=== PATIENT | female | born 1930 | race Caucasian/White ===

== ENCOUNTER 2016-12-28 20:41 | Observation (INO) | payer OTHER ==
--- NOTE | 2016-12-28 20:48 | PDOC ---
Rapid Medical Evaluation Chief Complaint: Nausea Time Seen by Provider: 12/28/16 20:47 Medical Evaluation: Allergies Allergy/AdvReac Type Severity Reaction Status Date / Time codeine Allergy Verified 04/08/14 20:27 12/28/16 20:47 I have performed a brief in-person evaluation of this patient. The patient presents with a chief complaint of: "Feeling sick," nausea, weakness. Pertinent physical exam findings: None I have ordered the following: Urinalysis, Urine culture. The patient will proceed to the ED for further evaluation
[2016-12-28 20:50] VITALS: BMI 21.6
--- NOTE | 2016-12-28 21:36 | PDOC ---
Attending Attestation - HPI HPI: 12/28/16 22:04 The patient is a 86 year old female, with a significant past medical history of hypertension, DM, diverticulosis, and chronic low back pain, who presents to the emergency department complaining of nausea without vomiting, weakness, and dizziness beginning today. The patient states that she visited her PCP Dr. Garsia yesterday for right leg pain/swelling and was prescribed pain medications. She reports not feeling well s/p beginning the pain medications today. The patient states that she received an ultrasound for her right lower extremity swelling that was negative for a blood clot. She denies chest pain or shortness of breath. She denies recent fevers or chills. PCP: Dr. Garsia Documentation prepared by Larry Marcelo, acting as medical billing specialist for Wayne Shetty MD. - Physicial Exam PE: 12/28/16 22:08 Vitals: Triage Vital signs reviewed General Appearance: no acute distress, well nourished well developed Eyes: Pupils equal reactive round, extraocular movement intact Chest Wall: Nontender Cardiac: Regular rate and rhythym, no murmurs, no rubs, no gallops Lungs: Clear to auscultation bilateral, good air movement bilaterally Abdomen: Soft, non distended, normal bowel sounds, non tender to palpation Extremities: +Right lower extremity edema. Skin: Warm and dry, no rashes or lesions, no rash, no petechiae Neuro: AOX3; Cranial Nerves 2-12 grossly intact, Strength intact to all extremities, Sensation intact to all extremities, gait normal Psych: Normal mood, normal affect <Larry Marcelo - Last Filed: 12/28/16 22:24> - Resident Resident Name: Percy Carty - ED Attending Attestation I have performed the following: I have examined & evaluated the patient, The case was reviewed & discussed with the resident, I agree w/resident's findings & plan, Exceptions are as noted - Medical Decision Making 12/29/16 02:11 Patient with 1 day history of weakness lightheadedness presyncope. Labs EKG unremarkable urinalysis positive. Status post IV fluids patient begins to feel better. Given symptoms of weakness and lightheadedness we will rule out patient for ACS serial troponins treat UTI and urinalysis with Keflex hydrate and observe for further management. <Wayne Shetty - Last Filed: 12/29/16 02:11>
--- NOTE | 2016-12-28 21:54 | PDOC ---
History of Present Illness - General Chief Complaint: Weakness Stated Complaint: FATIGUE Time Seen by Provider: 12/28/16 21:06 History Source: Patient Exam Limitations: No Limitations - History of Present Illness Initial Comments: 12/28/16 21:40 Patient is a 86F with history of DM2, diverticulitis, HLD, HTN, afib (no blood thinners, on digoxin) and hypothyroidism here today complaining of weakness for about 12 hours. She says that she's been having back, leg and knee pain recently , and was started on tramadol which she took for the first time this morning. She reports a prior poor reaction to percocet. She says that she's had associated nausea, vomiting, increased shortness of breath and decreased activity level. She reports that she does not remember when her last digoxin level, but think that shes due. She states that she's had some knee swelling, and had an in office ultrasound of her leg that was normal. She denies chest pain, abdominal pain, pain with urination. She endorses some urinary frequency. Past History - Past Medical History Allergies/Adverse Reactions: Allergies Allergy/AdvReac Type Severity Reaction Status Date / Time codeine Allergy Verified 12/28/16 20:47 Home Medications: Ambulatory Orders Atenolol [Tenormin -] 50 mg PO HS 04/07/14 Digoxin [Lanoxin -] 0.25 mg PO DAILY 04/07/14 Losartan/Hydrochlorothiazide [Losartan-Hctz 100-12.5 mg Tab] 1 each PO DAILY Rosuvastatin Calcium [Crestor] 5 mg PO DAILY 04/07/14 Sitagliptin Phos/Metformin HCl [Janumet 50-500 mg Tablet] 1 each PO DAILY Anemia: No Asthma: No Cancer: No Cardiac Disorders: Yes (AFIB'95) CVA: No COPD: No CHF: No Dementia: No Diabetes: Yes (NIDDM) GI Disorders: Yes (DIVERTICULITIS,DIVERTICULOSIS,DUODENITIS,ESOPHAGITIS, GASTRITIS,) Disorders: No HTN: Yes Hypercholesterolemia: Yes Liver Disease: Yes (FATTY LIVER) Seizures: No Thyroid Disease: Yes - Surgical History Abdominal Surgery: No Appendectomy: No Cardiac Surgery: No Cholecystectomy: Yes Lung Surgery: No Neurologic Surgery: No Orthopedic Surgery: Yes (TKR LEFT, RT HIP SURGERY) - Immunization History Immunization Up to Date: Yes - Suicide/Smoking/Psychosocial Hx Smoking History: Former smoker Have you smoked in the past 12 months: No Number of Cigarettes Smoked Daily: 0 If you are a former smoker, when did you quit?: years ago Cigars Per Day: 0 Information on smoking cessation initiated: No Hx Alcohol Use: No Drug/Substance Use Hx: No Substance Use Type: None Hx Substance Use Treatment: No Review of Systems - Review of Systems Comments:: 12/28/16 21:54 GENERAL/CONSTITUTIONAL: No fever or chills. Positive for generalized weakness. HEAD, EYES, EARS, NOSE AND THROAT: No change in vision. No sore throat. CARDIOVASCULAR: No chest pain. Positive for shortness of breath. RESPIRATORY: No cough, wheezing, or hemoptysis. GASTROINTESTINAL: Positive nausea and vomiting. Negative for diarrhea or constipation. GENITOURINARY: No dysuria, frequency, or change in urination. MUSCULOSKELETAL: No joint or muscle swelling or pain. No neck or back pain. SKIN: No rash NEUROLOGIC: No headache, vertigo, loss of consciousness, or change in strength/ sensation. ENDOCRINE: No increased thirst. No abnormal weight change HEMATOLOGIC/LYMPHATIC: No anemia, easy bleeding, or history of blood clots. ALLERGIC/IMMUNOLOGIC: No hives or skin allergy. *Physical Exam - Vital Signs Last Vital Signs Temp Pulse Resp BP Pulse Ox 97.5 F L 54 L 20 144/69 95 12/28/16 20:47 12/28/16 20:47 12/28/16 20:47 12/28/16 20:47 12/28/16 20:47 - Physical Exam Comments: 12/28/16 21:55 GENERAL: Awake, alert, and fully oriented, in no acute distress HEAD: No signs of trauma, normocephalic, atraumatic EYES: PERRLA, EOMI, sclera anicteric, conjunctiva clear ENT: Auricles normal inspection, hearing grossly normal, nares patent, oropharynx clear without exudates. Moist mucosa NECK: Normal ROM, supple, no lymphadenopathy, JVD, or masses LUNGS: No distress, speaks full sentences, clear to auscultation bilaterally HEART: Regular rate and rhythm, normal S1 and S2, no murmurs, rubs or gallops, peripheral pulses normal and equal bilaterally. ABDOMEN: Soft, nontender, normoactive bowel sounds. No guarding, no rebound. No masses EXTREMITIES: Normal inspection, Normal range of motion. Swelling without erythema in right lower leg, especially around right knee. Normal pulses. No clubbing or cyanosis. NEUROLOGICAL: Cranial nerves II through XII grossly intact. Normal speech, normal gait, no focal sensorimotor deficits SKIN: Warm, Dry, normal turgor, no rashes or lesions noted. Heart Score/ECG Review - History History: Slightly suspicious - Electrocardiogram EKG: Non specific repolarization disturbance - Age Age: >/= 65 - Risk Factors Risk Factors Heart Score: Yes Hx Hypercholesterolemia, Yes Hx Hypertension, Yes Hx Diabetes Based on the list above the patient has:: >/=3 risk factors or Hx atherosclerotic disease - Troponin Troponin: </= normal limit - Score Heart Score - Total: 5 ED Treatment Course - LABORATORY CBC & Chemistry Diagram: 12/28/16 22:20 12/28/16 22:20 - RADIOLOGY Radiology Studies Ordered: Category Date Time Status CHEST PA & LAT [RAD] Stat Radiology 12/28/16 21:22 Ordered Medical Decision Making - Medical Decision Making 12/28/16 21:56 Patient is a 86F with history of DM2, diverticulitis, HLD, HTN, afib (no blood thinners, on digoxin) and hypothyroidism here today complaining of weakness. Vital signs notable for HR of 54. Differential is broad, and includes: digoxin toxicity, acs, arrhythmia, pneumonia, uti. 12/29/16 01:04 Laboratory Tests 12/28/16 12/28/16 12/28/16 22:20 22:20 22:36 WBC 11.5 H D Hgb 13.1 D Hct 39.0 Plt Count 209 Neutrophils % 84.3 H BUN 19 H D Creatinine 1.1 H Magnesium 1.7 L Troponin I < 0.02 B-Natriuretic Peptide 171.79 Digoxin 1.1682 CBC shows small leukocytosis, trop negative, BNP normal, digoxin normal. 12/29/16 01:06 EKG shows normal sinus rhythm rate= 53bpm. Flattened T waves, although baseline is uneven. No ST elevation or depression. MO, QTc, QRS intervals normal. CXR shows no acute cardiopulmonary process. 12/29/16 01:43 UA shows UTI. Will treat with keflex. *DC/Admit/Observation/Transfer Diagnosis at time of Disposition: Weakness, UTI (urinary tract infection) - Discharge Dispostion Condition at time of disposition: Stable Admit: Yes - Referrals Referrals: Percy Garsia MD [Primary Care Provider] - - Patient Instructions - Post Discharge Activity
[2016-12-28] MEDS ORDERED: SODIUM CHLORIDE 1,000 ML IV SCH (22:00)
[2016-12-28] MEDS ORDERED: ONDANSETRON 4 MG/2 ML VIAL IVPB ONE (22:07)
[2016-12-28] MEDS ORDERED: ONDANSETRON *ODT* 4 MG TABLET ONE (22:15)
[2016-12-28 22:45] LABS: BASOPHIL 0.3 % (0-2.0); EOSINOPHIL 1.1 % (0-4.5); MCHC 33.7 g/dl (32.0-36.0); MEAN PLT VOLUME 7.9 fl (7.5-11.1); NEUTROPHILS 84.3 % (42.8-82.8); PLATELET COUNT 209 K/MM3 (134-434); RDW 13.7 % (11.6-15.6); WHITE BLOOD COUNT 11.5 K/mm3 (4.0-10.0)
[2016-12-28 22:59] LABS: INR 1.08 (0.82-1.09); PROTHROMBIN TIME (PATIENT) 12.2 SEC (9.98-11.88)
[2016-12-28 23:04] LABS: ALBUMIN 3.5 g/dl (3.4-5.0); ANION GAP 10 (8-16); BILIRUBIN,TOTAL 0.6 mg/dL (0.2-1.0); CALCIUM 9.4 mg/dL (8.5-10.1); CO2 29 mmol/L (21-32); CREATININE 1.1 mg/dL (0.55-1.02); GLUCOSE,RANDOM 180 mg/dL (74-106); MAGNESIUM 1.7 mg/dL (1.8-2.4); SGOT/AST 18 U/L (15-37); SGPT/ALT 30 U/L (12-78); TOT PROT 7.6 g/dl (6.4-8.2)
[2016-12-28 23:06] LABS: ALK PHOS 69 U/L (45-117); TROPONIN I < 0.02 ng/ml (0.00-0.05)
[2016-12-29 00:05] LABS: DIGOXIN LEVEL 1.1682 ng/ml (0.8-2.0)
[2016-12-29 01:04] LABS: URINE APPEARANCE CLEAR; URINE BILIRUBIN NEGATIVE (NEGATIVE); URINE BLOOD 1+ (NEGATIVE); URINE COLOR LTYELLOW; URINE GLUCOSE (UA) NEGATIVE (NEGATIVE); URINE KETONE NEGATIVE (NEGATIVE); URINE NITRITE NEGATIVE (NEGATIVE); URINE PROTEIN NEGATIVE (NEGATIVE); URINE UROBILINOGEN NEGATIVE mg/dL (0.2-1.0)
[2016-12-29 01:16] LABS: URINE HYALINE CAST 1 /lpf; URINE MUCUS RARE; URINE RBC 9; URINE WBC 56
[2016-12-29] MEDS ORDERED: CEPHALEXIN MONOHYDRATE 500 MG CAPSULE (UD) PO ONE (01:43)
[2016-12-29] MEDS ORDERED: CEPHALEXIN MONOHYDRATE 250 MG CAPSULE (FP) ONE (02:09)
[2016-12-29 02:32] LABS: THYROID STIMULATING HORMONE 3.3 uIU/ml (0.358-3.74)
[2016-12-29] MEDS ORDERED: ACETAMINOPHEN 325 MG TABLET (FP) PO ONE (03:14)
[2016-12-29 08:25] LABS: TROPONIN I < 0.02 ng/ml (0.00-0.05)
[2016-12-29] MEDS ORDERED: PATIENT'S OWN MEDICATION (NON-FORMULARY) (Losartan/Hydrochlorothiazide [Losartan-Hctz 100- PO SCH (10:00)
[2016-12-29 10:32] LABS: BASOPHIL 0.6 % (0-2.0); EOSINOPHIL 2.4 % (0-4.5); MCH 29.9 pg (25.7-33.7); MCHC 33.9 g/dl (32.0-36.0); MEAN CELL VOLUME 88.1 fl (80-96); MEAN PLT VOLUME 7.6 fl (7.5-11.1); NEUTROPHILS 66.1 % (42.8-82.8); PLATELET COUNT 197 K/MM3 (134-434); RDW 13.6 % (11.6-15.6); WHITE BLOOD COUNT 6.4 K/mm3 (4.0-10.0)
[2016-12-29 10:55] LABS: ALBUMIN 3.3 g/dl (3.4-5.0); ANION GAP 10 (8-16); CALCIUM 10.1 mg/dL (8.5-10.1); CO2 28 mmol/L (21-32); GLUCOSE,RANDOM 119 mg/dL (74-106)
[2016-12-29 10:58] LABS: ALK PHOS 65 U/L (45-117); BILIRUBIN,TOTAL 0.7 mg/dL (0.2-1.0); SGOT/AST 19 U/L (15-37); SGPT/ALT 30 U/L (12-78)
[2016-12-29] MEDS ORDERED: PT OWN MED DRAWER 7, Y5N ONE ×2 (11:29→15:26)
[2016-12-29] MEDS: HYDROCHLOROTHIAZIDE 12.5 MG CAPSULE (FP) PO SCH (11:31)
[2016-12-29] MEDS: DIGOXIN 0.25 MG TABLET (FP) PO SCH (11:31)
[2016-12-29] MEDS: ROSUVASTATIN CA 5 MG TABLET (FP) PO SCH (11:31)
--- NOTE | 2016-12-29 12:44 | HP ---
Admitting History and Physical - Primary Care Physician PCP: Percy Garsia - Admission Chief Complaint: Feeling weak and exhausted History of Present Illness: 86 yrs old F independent, lives alone H/O HTN, Hypercholsteremia, T2DM, Paroxysmal Afib rate controlled not on AC, chronic venous insufficiency and back pain , on Saturday patient visited PMD office with Rt Leg , foot and back pain , LE Doppler was performed that showed no DVT also had CT scan Lumbosacral spine that shows Lumbar canal stenosis and DJD with Left 5 mm non obstructing renal stone, patient was discharged home on tramadol, patient feelt weak , oozy in after noon after taking tramadol, came to Ed for evaluation, also c/o lethargy low grade fever, no dysuria, chills, suprapubic pain or tenderness, no c/o nausea, vomiting or diarrhea, In the ED W/U sshows elevated TWBC with + UA admitted for further management. History Source: Patient Limitations to Obtaining History: No Limitations - Past Medical History Cardiovascular: Yes: HTN Gastrointestinal: Yes: Constipation, Diverticulosis, Other Psych: Yes: Anxiety Musculoskeletal: Yes: Chronic low back pain Endocrine: Yes: Diabetes Mellitus - Past Surgical History Past Surgical History: Yes: Cholecystectomy, Colonoscopy, Joint Replacement - Smoking History Smoking history: Former smoker Have you smoked in the past 12 months: No Aproximately how many cigarettes per day: 0 If you are a former smoker, when did you quit?: years ago - Alcohol/Substance Use Hx Alcohol Use: No History of Substance Use: reports: None - Social History Occupation: retired History of Recent Travel: No Home Medications - Allergies Allergies/Adverse Reactions: Allergies Allergy/AdvReac Type Severity Reaction Status Date / Time codeine Allergy Verified 12/28/16 20:47 - Home Medications Home Medications: Ambulatory Orders Atenolol [Tenormin -] 50 mg PO HS 04/07/14 Digoxin [Lanoxin -] 0.25 mg PO DAILY 04/07/14 Losartan/Hydrochlorothiazide [Losartan-Hctz 100-12.5 mg Tab] 1 each PO DAILY Rosuvastatin Calcium [Crestor] 5 mg PO DAILY 04/07/14 Sitagliptin Phos/Metformin HCl [Janumet 50-500 mg Tablet] 1 each PO DAILY Family Disease History - Family Disease History Family Disease History: CA: Father, Other: Mother Review of Systems - Review of Systems Constitutional: reports: Fever, Malaise HENT: reports: No Symptoms Neck: reports: No Symptoms Cardiovascular: denies: Chest Pain, Edema, Palpitations, Shortness of Breath Respiratory: denies: Cough, Exercise Intolerance, Hemoptysis, Orthopnea, PND, SOB, SOB on Exertion Gastrointestinal: reports: Constipation. denies: Abdominal Pain, Diarrhea Musculoskeletal: reports: Back Pain Neurological: denies: Change in LOC Endocrine: denies: Excessive Sweating Hematology/Lymphatic: denies: Easily Bruised Pain Intensity: 4 Physical Examination Vital Signs: Vital Signs Temperature 97.9 F 12/29/16 09:23 Pulse Rate 76 12/29/16 11:31 Respiratory Rate 18 12/29/16 09:23 Blood Pressure 153/87 12/29/16 09:23 O2 Sat by Pulse Oximetry (%) 96 12/29/16 09:23 Elderly F looks comfortable C/O Left foot pain on lateral aspect and lower back pain HEENT: MM moist, no anemia, PERRLA, EOMI NECK; No JVD No Bruit, Thyroid Central CHEST: CTA B/L CVS: S1S2 R no m/g/r ABD: No distention, non tender BS + EXT: Rt foot and mild swelling on inferior to lateral malleolus, varicocity of B/L LE vein Trace edema feet, no calf tenderness, Pulses + ROPE WALKER: AOX3 non focal Labs: CBC, BMP 12/29/16 10:05 12/29/16 10:05 Laboratory Results - last 24 hr 12/28/16 12/28/16 12/28/16 22:20 22:20 22:20 WBC 11.5 H D RBC 4.38 Hgb 13.1 D Hct 39.0 MCV 89.0 MCH 30.0 MCHC 33.7 RDW 13.7 Plt Count 209 MPV 7.9 Neutrophils % 84.3 H Lymphocytes % 8.9 Monocytes % 5.4 Eosinophils % 1.1 Basophils % 0.3 PT with INR 12.20 H INR 1.08 Sodium 136 Potassium 3.8 Chloride 97 L Carbon Dioxide 29 Anion Gap 10 BUN 19 H D Creatinine 1.1 H Creat Clearance w eGFR 47.21 Random Glucose 180 H D Calcium 9.4 Magnesium 1.7 L Total Bilirubin 0.6 AST 18 ALT 30 D Alkaline Phosphatase 69 Troponin I < 0.02 B-Natriuretic Peptide Total Protein 7.6 Albumin 3.5 TSH Urine Color Urine Appearance Urine pH Ur Specific Morrow Urine Protein Urine Glucose (UA) Urine Ketones Urine Blood Urine Nitrite Urine Bilirubin Urine Urobilinogen Ur Leukocyte Esterase Urine WBC (Auto) Urine RBC (Auto) Urine RBC Ur Epithelial Cells Hyaline Casts Urine Mucus Digoxin Urine Test Results Urine Color Ltyellow 12/29/16 00:50 Urine Appearance Clear 12/29/16 00:50 Urine pH 6.0 (5.0-8.0) 12/29/16 00:50 Ur Specific [place]row 1.008 (1.001-1.035) 12/29/16 00:50 Urine Protein Negative (NEGATIVE) 12/29/16 00:50 Urine Glucose (UA) Negative (NEGATIVE) 12/29/16 00:50 Urine Ketones Negative (NEGATIVE) 12/29/16 00:50 Urine Blood 1+ (NEGATIVE) H 12/29/16 00:50 Urine Nitrite Negative (NEGATIVE) 12/29/16 00:50 Urine Bilirubin Negative (NEGATIVE) 12/29/16 00:50 Ur Leukocyte Esterase 3+ (NEGATIVE) H 12/29/16 00:50 Urine RBC No Result Required. 12/29/16 00:50 Ur Epithelial Cells Rare /hpf (FEW) 12/29/16 00:50 Urine Mucus Rare 12/29/16 00:50 Imaging - Results X-ray: Report Reviewed (No acute changes) EKG: Report Reviewed ([address] T changes, normal intervals) Problem List - Problems (1) UTI (urinary tract infection) Assessment/Plan: Present with back pain and + UA , elevated to TWBC on Cefazolin 1 gm q 8hrly F/ U U culture tylenol PRN> Code(s): N39.0 - URINARY TRACT INFECTION, SITE NOT SPECIFIED Qualifiers: Urinary tract infection type: acute pyelonephritis Qualified Code(s): N10 - Acute pyelonephritis (2) Diabetes type 2, controlled Assessment/Plan: Hold Metformin Cont Januvia, Diabetic Diet, HBA!C, accucheck and correction dose insulin. Code(s): E11.9 - TYPE 2 DIABETES MELLITUS WITHOUT COMPLICATIONS Qualifiers: Diabetes mellitus complication status: without complication (3) Paroxysmal A-fib Assessment/Plan: Not on AC at present on Dig rate controlled. Code(s): I48.0 - PAROXYSMAL ATRIAL FIBRILLATION (4) Hypertension Assessment/Plan: Well controlled cont all home medications. Code(s): I10 - ESSENTIAL (PRIMARY) HYPERTENSION Qualifiers: Hypertension type: essential hypertension Qualified Code(s): I10 - Essential (primary) hypertension (5) Hyperlipidemia Code(s): E78.5 - HYPERLIPIDEMIA, UNSPECIFIED (6) Right foot pain Assessment/Plan: No clinical sifgn of inflamation, DVT R/O in the office F/U Uric acid , pain conytol and ESR Code(s): M79.671 - PAIN IN RIGHT FOOT (7) Weakness Assessment/Plan: Generalised weakness non focal, most likely due to Pain medication/UTI. Code(s): R53.1 - WEAKNESS
[2016-12-29] MEDS ORDERED: sitaGLIPtin PHOSPHATE 25 MG TABLET (FP) PO ONE (13:30)
[2016-12-29] MEDS: ENOXAPARIN NA (PORCINE) 40 MG/0.4 ML DISP.SYRIN SQ SCH (15:30)
[2016-12-29] MEDS: LOSARTAN POTASSIUM 100 MG TABLET PO SCH (15:30)
[2016-12-29] MEDS: CEFAZOLIN 1 GM in DEXTROSE 5%-WATER - 50 ML IVPB SCH ×2 (15:30→18:40)
[2016-12-29 17:41] LABS: URINE LEUK ESTERASE 3+ (NEGATIVE)
[2016-12-29] MEDS ORDERED: CEFAZOLIN 1 GM in DEXTROSE 5%-WATER - 50 ML IVPB SCH (18:00)
[2016-12-29] MEDS: ACETAMINOPHEN 325 MG TABLET (FP) PO PRN (18:44)
[2016-12-29] MEDS: ATENOLOL 50 MG TABLET (FP) PO SCH (22:54)
[2016-12-30] MEDS ORDERED: PT OWN MED DRAWER 7, Y5N ONE ×2 (00:11→10:06)
[2016-12-30] MEDS: CEFAZOLIN 1 GM in DEXTROSE 5%-WATER - 50 ML IVPB SCH ×2 (00:14→10:35)
[2016-12-30] MEDS: ACETAMINOPHEN 325 MG TABLET (FP) PO PRN ×3 (01:17→18:42)
[2016-12-30] MEDS: sitaGLIPtin PHOSPHATE 25 MG TABLET (FP) PO SCH (06:47)
[2016-12-30 08:08] LABS: BASOPHIL 0.6 % (0-2.0); EOSINOPHIL 3.4 % (0-4.5); MCH 29.8 pg (25.7-33.7); MCHC 33.8 g/dl (32.0-36.0); MEAN CELL VOLUME 88.1 fl (80-96); MEAN PLT VOLUME 7.9 fl (7.5-11.1); NEUTROPHILS 65.5 % (42.8-82.8); PLATELET COUNT 202 K/MM3 (134-434); RDW 13.7 % (11.6-15.6); WHITE BLOOD COUNT 7.1 K/mm3 (4.0-10.0)
[2016-12-30 08:22] LABS: ALBUMIN 3.2 g/dl (3.4-5.0); GLUCOSE,RANDOM 117 mg/dL (74-106)
[2016-12-30 08:28] LABS: ALK PHOS 64 U/L (45-117); ANION GAP 9 (8-16); BILIRUBIN,TOTAL 0.8 mg/dL (0.2-1.0); CALCIUM 8.8 mg/dL (8.5-10.1); CO2 28 mmol/L (21-32); CREATININE 1.1 mg/dL (0.55-1.02); SGOT/AST 19 U/L (15-37); SGPT/ALT 28 U/L (12-78)
[2016-12-30] MEDS: LOSARTAN POTASSIUM 100 MG TABLET PO SCH (10:34)
[2016-12-30] MEDS: ROSUVASTATIN CA 5 MG TABLET (FP) PO SCH (10:34)
[2016-12-30] MEDS: HYDROCHLOROTHIAZIDE 12.5 MG CAPSULE (FP) PO SCH (10:34)
[2016-12-30] MEDS: DIGOXIN 0.25 MG TABLET (FP) PO SCH (10:34)
[2016-12-30] MEDS: ENOXAPARIN NA (PORCINE) 40 MG/0.4 ML DISP.SYRIN SQ SCH (10:35)
[2016-12-30 11:26] LABS: C-REACTIVE PROTEIN 0.9 MG/DL (0.00-0.3); URIC ACID 5.6 mg/dL (2.6-7.2)
[2016-12-30] MEDS ORDERED: SODIUM CHLORIDE 1,000 ML IV SCH (12:18)
--- NOTE | 2016-12-30 12:24 | PN ---
Progress Note, Physician History of Present Illness: Feels improved still c/o mild pain - Current Medication List Current Medications: Active Medications Acetaminophen (Tylenol -) 650 mg PO Q6H PRN PRN Reason: FEVER OR PAIN Last Admin: 12/30/16 10:35 Dose: 650 mg Atenolol (Tenormin -) 50 mg PO HS [facility] Last Admin: 12/29/16 22:54 Dose: 50 mg Cephalexin HCl (Keflex -) 500 mg PO BID [facility] Digoxin (Lanoxin -) 0.25 mg PO DAILY [facility] Last Admin: 12/30/16 10:34 Dose: 0.25 mg Enoxaparin Sodium (Lovenox -) 40 mg SQ DAILY [facility] Last Admin: 12/30/16 10:35 Dose: 40 mg Hydrochlorothiazide (Hctz -) 12.5 mg PO DAILY [facility] Last Admin: 12/30/16 10:34 Dose: 12.5 mg Sodium Chloride (Normal Saline -) 1,000 mls @ 75 mls/hr IV ASDIR STA Stop: 12/31/16 01:37 Losartan Potassium (Losartan Potassium) 100 mg PO DAILY [facility] Last Admin: 12/30/16 10:34 Dose: 100 mg Rosuvastatin Calcium (Crestor -) 5 mg PO DAILY [facility] Last Admin: 12/30/16 10:34 Dose: 5 mg Sitagliptin Phosphate (Januvia -) 25 mg PO DAILY@0700 [facility] Last Admin: 12/30/16 06:47 Dose: 25 mg - Objective Vital Signs: Vital Signs Temperature 98.2 F 12/30/16 10:27 Pulse Rate 62 12/30/16 10:34 Respiratory Rate 18 12/30/16 10:27 Blood Pressure 141/76 12/30/16 10:27 O2 Sat by Pulse Oximetry (%) 100 12/29/16 22:00 Elderly F looks comfortable C/O mild Rt foot pain on lateral aspect and lower back pain HEENT: MM moist, no anemia, PERRLA, EOMI NECK; No JVD No Bruit, Thyroid Central CHEST: CTA B/L CVS: S1S2 R no m/g/r ABD: No distention, non tender BS + EXT: Rt foot and mild swelling on inferior to lateral malleolus, varicocity of B/L LE vein Trace edema feet, no calf tenderness, Pulses + PARTS PRODUCT ANALYST: AOX3 non focal Labs: CBC, BMP 12/30/16 06:15 12/30/16 06:15 INR, PTT INR 1.08 (0.82-1.09) 12/28/16 22:20 Problem List - Problems (1) UTI (urinary tract infection) Assessment/Plan: Present with back pain and + UA , elevated to TWBC on admission trended normal switch to Po Cefazolin, culture is negative> Code(s): N39.0 - URINARY TRACT INFECTION, SITE NOT SPECIFIED Qualifiers: Urinary tract infection type: acute pyelonephritis Qualified Code(s): N10 - Acute pyelonephritis (2) Diabetes type 2, controlled Assessment/Plan: Hold Metformin Cont Januvia, Diabetic Diet, HBA!C, accucheck and correction dose insulin. Code(s): E11.9 - TYPE 2 DIABETES MELLITUS WITHOUT COMPLICATIONS Qualifiers: Diabetes mellitus complication status: without complication (3) Paroxysmal A-fib Assessment/Plan: Not on AC at present on Dig rate controlled. Code(s): I48.0 - PAROXYSMAL ATRIAL FIBRILLATION (4) Hypertension Assessment/Plan: Well controlled cont all home medications. Code(s): I10 - ESSENTIAL (PRIMARY) HYPERTENSION Qualifiers: Hypertension type: essential hypertension Qualified Code(s): I10 - Essential (primary) hypertension (5) Hyperlipidemia Assessment/Plan: Cont STatin Code(s): E78.5 - HYPERLIPIDEMIA, UNSPECIFIED (6) Right foot pain Assessment/Plan: No clinical sifgn of inflamation, DVT R/O in the office F/U Uric acid , pain control with tylenol and ESR Code(s): M79.671 - PAIN IN RIGHT FOOT (7) Dehydration Assessment/Plan: IV Hydration Code(s): E86.0 - DEHYDRATION (8) Weakness Assessment/Plan: Generalised weakness non focal, most likely due to Pain medication/UTI. Code(s): R53.1 - WEAKNESS
[2016-12-30 12:32] LABS: ERYTHROCYTE SEDIMENTATION RATE 31 mm/hr (0-30)
[2016-12-30] MEDS: ATENOLOL 50 MG TABLET (FP) PO SCH (21:46)
[2016-12-30] MEDS: CEPHALEXIN MONOHYDRATE 500 MG CAPSULE (UD) PO SCH (21:46)
[2016-12-31] MEDS: ACETAMINOPHEN 325 MG TABLET (FP) PO PRN (06:31)
[2016-12-31] MEDS: sitaGLIPtin PHOSPHATE 25 MG TABLET (FP) PO SCH (06:32)
[2016-12-31 07:41] LABS: BASOPHIL 0.6 % (0-2.0); EOSINOPHIL 3.3 % (0-4.5); MCH 29.9 pg (25.7-33.7); MCHC 33.8 g/dl (32.0-36.0); MEAN CELL VOLUME 88.6 fl (80-96); MEAN PLT VOLUME 7.7 fl (7.5-11.1); NEUTROPHILS 65.8 % (42.8-82.8); PLATELET COUNT 209 K/MM3 (134-434); RDW 13.6 % (11.6-15.6); WHITE BLOOD COUNT 7.5 K/mm3 (4.0-10.0)
[2016-12-31 07:48] LABS: ANION GAP 8 (8-16); CALCIUM 7.5 mg/dL (8.5-10.1); CO2 29 mmol/L (21-32); GLUCOSE,RANDOM 121 mg/dL (74-106)
[2016-12-31 10:26] VITALS: BP 105/58; PULSE 64; TEMP 97.5
[2016-12-31] MEDS: DIGOXIN 0.25 MG TABLET (FP) PO SCH (10:29)
[2016-12-31] MEDS: ROSUVASTATIN CA 5 MG TABLET (FP) PO SCH (10:30)
[2016-12-31] MEDS: HYDROCHLOROTHIAZIDE 12.5 MG CAPSULE (FP) PO SCH (10:30)
[2016-12-31] MEDS: LOSARTAN POTASSIUM 100 MG TABLET PO SCH (10:30)
[2016-12-31] MEDS: CEPHALEXIN MONOHYDRATE 500 MG CAPSULE (UD) PO SCH (10:30)
--- NOTE | 2016-12-31 11:38 | EKG ---
Test Reason : Blood Pressure : / mmHG Vent. Rate : 054 BPM Atrial Rate : 054 BPM P-R Int : 208 ms QRS Dur : 096 ms QT Int : 414 ms P-R-T Axes : 052 -01 002 degrees QTc Int : 392 ms POOR DATA QUALITY, INTERPRETATION MAY BE ADVERSELY AFFECTED SINUS BRADYCARDIA MINIMAL VOLTAGE CRITERIA FOR LVH, MAY BE NORMAL VARIANT NONSPECIFIC ST AND T WAVE ABNORMALITY ABNORMAL ECG WHEN COMPARED WITH ECG OF 10-APR-2014 09:54, T WAVE INVERSION NO LONGER EVIDENT IN INFERIOR LEADS T WAVE INVERSION NO LONGER EVIDENT IN LATERAL LEADS Confirmed by CLAUDIA KELLEY, SOHEILA ([id number]) on 12/31/2016 11:38:05 AM Referred By: Confirmed By:SOHEILA TAYLOR MD
--- NOTE | 2017-01-01 13:19 | DS ---
Physical Examination Vital Signs: Patient came to ER with complaints of lethargy and weakness brought on by several days of Acute Sciatica right side with new onset pain Rx with Tramadol. Temperature 97.5 F L 12/31/16 10:00 Pulse Rate 64 12/31/16 10:29 Respiratory Rate 18 12/31/16 10:00 Blood Pressure 105/58 12/31/16 10:00 O2 Sat by Pulse Oximetry (%) 98 12/31/16 09:00 When seen in ER she was noted to have a mildly elevated WBC and pyuria and was started on Antibiotics.She was improved but continued to have right sided lower extremity pain focused in right knee. This will be followed by Orthopedic MD as outpatient. Constitutional: Yes: Calm Eyes: Yes: Conjunctiva Clear Cardiovascular: Yes: Regular Rate and Rhythm Respiratory: Yes: Diminished Gastrointestinal: Yes: Soft Renal/: No: Bladder Distention, CVA Tenderness - Right, Prince Present Musculoskeletal: Yes: Joint Swelling (right knee) Edema: No Neurological: Yes: Alert, Oriented Labs: CBC, BMP 12/31/16 06:20 12/31/16 06:20 Discharge Summary Reason For Visit: WEAKNESS,UTI Acute back pain Acute right Sciatica Diabetes Mellitus (acute) Urinary Tract Infection (acute) Acute Weakness Hypertension(Acute) Left Knee replacement Right Hip replacement Procedures: Principal: IV antibiotic; Urine C/S and followup lab and BGM's. Other Procedures: telemetry Hospital Course: Improved failry rapidly; will follow as outpatient and refer to orthopedic MD. Condition: Stable - Instructions Diet, Activity, Other Instructions: Continue Low salt low carbohydrate diet. Continue antibiotic for on 3 days as outpatient. Make appt. with Orthopedic MD Dr. Lucas Re: right knee ?? Pain MD if Dr. Lucas does not think the right knee pain is Orthopedic See Dr. Garsia within 2 weeks if able. Referrals: Percy Garsia MD [Primary Care Provider] - Disposition: HOME - Home Medications Comprehensive Discharge Medication List: Ambulatory Orders Atenolol [Tenormin -] 50 mg PO HS 04/07/14 Digoxin [Lanoxin -] 0.25 mg PO DAILY 04/07/14 Losartan/Hydrochlorothiazide [Losartan-Hctz 100-12.5 mg Tab] 1 each PO DAILY Rosuvastatin Calcium [Crestor] 5 mg PO DAILY 04/07/14 Sitagliptin Phos/Metformin HCl [Janumet 50-500 mg Tablet] 1 each PO DAILY Acetaminophen [Tylenol .Regular Strength -] 650 mg PO Q6H PRN tablet 12/31/16 Cephalexin Monohydrate [Keflex -] 500 mg PO BID #6 capsule 12/31/16
== END 2016-12-31 10:54 | disposition home or self-care (01) ==
LOC: JER 20:41 → JERBED 12-29 02:04 → J4S 12-29 08:50 → JERBED 12-29 08:51 → J4S 12-29 09:45
PROVIDERS: ADMIT Internal Medicine; ATTEND Internal Medicine
PROC: 3E033GC Introduction of Other Therapeutic Substance into Peripheral Vein, Percutaneous Approach (ICD-10-PCS; principal; 2016-12-29)
PROC: 3E0337Z Introduction of Electrolytic and Water Balance Substance into Peripheral Vein, Percutaneous Approach (ICD-10-PCS; 2016-12-29)
PROC: 3E03329 Introduction of Other Anti-infective into Peripheral Vein, Percutaneous Approach (ICD-10-PCS; 2016-12-29)
PROC: 3E013GC Introduction of Other Therapeutic Substance into Subcutaneous Tissue, Percutaneous Approach (ICD-10-PCS; 2016-12-29)
DX: N39.0 Urinary tract infection, site not specified (principal); N10 Acute pyelonephritis; R53.1 Weakness; E11.9 Type 2 diabetes mellitus without complications; E78.5 Hyperlipidemia, unspecified; I10 Essential (primary) hypertension; I48.0 Paroxysmal atrial fibrillation; M79.671 Pain in right foot; E86.0 Dehydration
CPT/HCPCS: 36415; 71010-TC; 80048; 80053; 80162; 81003; 81015; 83735; 83880; 84443; 84484; 84550; 85025; 85610; 85651; 86140; 87086; 93005; 93010; 96372; 96374; 99285-25; G0378

== ENCOUNTER 2020-12-08 11:50 | Observation (INO) | payer OTHER ==
[2020-12-08 13:42] LABS: BASO % 0.7 % (0-2.0); EOS % 2.6 % (0-4.5); HEMATOCRIT 37.9 % (32.4-45.2); HEMOGLOBIN 13.1 GM/dl (10.7-15.3); LYMPH % 17.5 % (8-40); MCH 31.3 pg (25.7-33.7); MCHC 34.5 g/dl (32.0-36.0); MEAN CELL VOLUME 90.8 fl (80-96); MEAN PLT VOLUME 8.2 fl (7.5-11.1); MONO % 7.3 % (3.8-10.2); NEUT % 71.9 % (42.8-82.8); PLATELET COUNT 206 10^3/uL (134-434); RBC 4.18 M/mm3 (3.60-5.2); RDW 13.4 % (11.6-15.6); WHITE BLOOD COUNT 6.9 K/mm3 (4.0-10.8)
[2020-12-08 13:47] LABS: ALBUMIN 4.3 g/dl (3.4-5.0); ALK PHOS 66 U/L (45-117); ANION GAP 12 MMOL/L (8-16); CALCIUM 9.9 mg/dl (8.5-10); CHLORIDE 99 mmol/L (98-107); CO2 28 mmol/L (21-32); CREATININE 1.3 mg/dl (0.55-1.3); GLUCOSE,RANDOM 106 mg/dl (74-106); SGOT/AST 26 U/L (15-37); SGPT/ALT 26 U/L (13-61); SODIUM 139 mmol/L (136-145); TOT PROT 7.6 g/dl (6.4-8.2)
[2020-12-08 18:24] VITALS: BMI 19.3
[2020-12-09 08:04] LABS: BASO % 2.1 % (0-2.0); EOS % 4.5 % (0-4.5); HEMATOCRIT 36.2 % (32.4-45.2); HEMOGLOBIN 12.1 GM/dl (10.7-15.3); MCH 30.6 pg (25.7-33.7); MCHC 33.4 g/dl (32.0-36.0); MEAN CELL VOLUME 91.7 fl (80-96); MEAN PLT VOLUME 7.7 fl (7.5-11.1); MONO % 9.6 % (3.8-10.2); NEUT % 65.8 % (42.8-82.8); PLATELET COUNT 177 10^3/uL (134-434); RBC 3.95 M/mm3 (3.60-5.2); RDW 13.4 % (11.6-15.6); WHITE BLOOD COUNT 5.8 K/mm3 (4.0-10.8)
[2020-12-09 08:06] LABS: MAGNESIUM 1.8 mg/dL (1.8-2.4)
[2020-12-09] MEDS: HYDROCHLOROTHIAZIDE 12.5 MG CAPSULE (FP) PO SCH (09:29)
[2020-12-09] MEDS: LOSARTAN POTASSIUM 50 MG TABLET PO SCH (09:29)
[2020-12-09] MEDS: ENOXAPARIN NA (PORCINE) 30 MG/0.3 ML DISP.SYRIN SQ SCH (09:30)
[2020-12-09] MEDS ORDERED: PATIENT'S OWN MEDICATION (NON-FORMULARY) (Losartan/Hydrochlorothiazide [Losartan-Hctz 100- PO SCH (10:00)
[2020-12-09 11:34] LABS: N-TERMINAL BNP 319.7 pg/ml (5-450)
[2020-12-09] MEDS: DIGOXIN 0.125 MG TABLET PO SCH (14:04)
[2020-12-09] MEDS: ASPIRIN 81 MG CHEWABLE TABLETS PO SCH (14:05)
[2020-12-09] MEDS: INSULIN (NOVOLOG) ASPART 100 UNITS/ML 10ML VIAL SQ SCH ×3 (17:34→22:05)
[2020-12-09] MEDS ORDERED: INSULIN SLIDING SCALE (NOVOLOG) 1 VIAL SQ ONE (21:57)
[2020-12-09] MEDS ORDERED: PATIENT'S OWN MEDICATION (NON-FORMULARY) (Sitagliptin Phos/Metformin Hcl [Janumet 50-500 M PO SCH (22:00)
[2020-12-09] MEDS ORDERED: metFORMIN HCL 500 MG TABLET (FP) PO SCH (22:00)
[2020-12-09] MEDS ORDERED: ROSUVASTATIN CA 5 MG TABLET (FP) PO SCH (22:00)
[2020-12-09] MEDS ORDERED: sitaGLIPtin PHOSPHATE 50 MG TABLET PO SCH (22:00)
[2020-12-10 05:37] VITALS: TEMP 97.5
[2020-12-10] MEDS ORDERED: LEVOTHYROXINE NA 50 MCG TABLET (FP) PO SCH (07:00)
[2020-12-10] MEDS: INSULIN (NOVOLOG) ASPART 100 UNITS/ML 10ML VIAL SQ SCH (07:27)
[2020-12-10 08:47] VITALS: BP 103/66; PULSE 68
[2020-12-10] MEDS: ASPIRIN 81 MG CHEWABLE TABLETS PO SCH (09:30)
[2020-12-10] MEDS: HYDROCHLOROTHIAZIDE 12.5 MG CAPSULE (FP) PO SCH (09:30)
[2020-12-10] MEDS: DIGOXIN 0.125 MG TABLET PO SCH (09:30)
[2020-12-10] MEDS: ENOXAPARIN NA (PORCINE) 30 MG/0.3 ML DISP.SYRIN SQ SCH (09:30)
[2020-12-10] MEDS: LOSARTAN POTASSIUM 50 MG TABLET PO SCH (09:30)
== END 2020-12-10 10:24 | disposition home or self-care (01) ==
LOC: FER 11:50 → FM/S 14:52
PROVIDERS: ADMIT Internal Medicine; ATTEND Nurse Practitioner Family
DX: R55 Syncope and collapse (principal); R00.1 Bradycardia, unspecified; Z88.6 Allergy status to analgesic agent; Z87.891 Personal history of nicotine dependence; Z96.659 Presence of unspecified artificial knee joint; I10 Essential (primary) hypertension; E78.5 Hyperlipidemia, unspecified; I48.0 Paroxysmal atrial fibrillation; E11.9 Type 2 diabetes mellitus without complications; V43.52XA Car driver injured in collision with other type car in traffic accident, initial encounter; Y93.89 Activity, other specified; Y92.89 Other specified places as the place of occurrence of the external cause; Z29.9 Encounter for prophylactic measures, unspecified
CPT/HCPCS: 36415; 70450-TC; 71275-TC; 72125-TC; 80053; 80162; 82550; 82962; 83735; 83880; 84484; 85025; 85027; 93005; 93306-TC; 93880-TC; 97116-GP; 97162-GP; 99285-25; C9803; G0378; U0003; U0005